=== PATIENT | female | born 1930 | race Two or more races ===

== ENCOUNTER 2018-07-18 16:03 | Emergency (ER) | payer OTHER ==
--- NOTE | 2018-07-18 16:22 | PDOC ---
History of Present Illness - General Chief Complaint: Urinary Catheter Problem Stated Complaint: URINARY SYMPTOMS - History of Present Illness Initial Comments: 07/18/18 17:11 88 yo F with h/o frequent uti, here from assisted living with concerns by staff for behavoiral changes. increased agression and feistiness in evening. pt had complained of dysuria few day ago. has had loose cough last few days states everyone at the nursing facility had bronchitis. denies f/c no nv/ pt currently denying she had any dysuria states she feels fine. no abd pain no cp no sob. does have chronic leg swelling. less ambulatory recently but still walks with assistance. Past History - Past Medical History Allergies/Adverse Reactions: Allergies Allergy/AdvReac Type Severity Reaction Status Date / Time tomato Allergy Verified 07/18/18 16:37 Home Medications: Ambulatory Orders Acetaminophen [Tylenol -] 500 mg PO TID PRN 07/18/18 Albuterol Sulfate Inhaler - [Ventolin HFA Inhaler -] 1 puff IH Q4H PRN #1 inhaler MDD 6 07/18/18 Ammonium Lactate Cream [Lac-Hydrin] 1 applic TP BID 07/18/18 Azithromycin 250 mg PO DAILY #5 tablet 07/18/18 Cholecalciferol (Vitamin D3) [Vitamin D3] 1,000 unit PO DAILY 07/18/18 Clotrimazole [Lotrimin 1% Solution -] 1 applic TP BID 07/18/18 Docusate Sodium [Colace] 200 mg PO DAILY 07/18/18 Duloxetine HCl [Cymbalta] 20 mg PO DAILY 07/18/18 Fluticasone Prop 0.05% Nasal [Flonase -] 1 - 2 spray NS DAILY 07/18/18 Gabapentin 200 mg PO TID 07/18/18 Guaifenesin [Siltussin SA] 200 mg PO QSHIFT 07/18/18 Nitroglycerin [Nitrostat] 0.4 mg SL ASDIR 07/18/18 Review of Systems - Review of Systems Constitutional: No: Chills, Diaphoresis HEENTM: No: Blurred Vision Respiratory: Yes: Cough. No: Orthopnea, Shortness of Breath Cardiac (ROS): Yes: Edema. No: Chest Pain : Yes: Burning, Dysuria All Other Systems: Reviewed and Negative *Physical Exam - Physical Exam Comments: 07/18/18 17:13 awake alert lungs with wheezing bilateral bases ,faint crackles. normal effor. heart rrr no mrg abd soft nt nd. ext wwp mild nonpitting edema bilaterally. alert oriented. moves all ext. well appearing. ED Treatment Course - LABORATORY CBC & Chemistry Diagram: 07/18/18 17:19 07/18/18 17:19 Medical Decision Making - Medical Decision Making 07/18/18 16:21 88 yo F from nursing facility here for concerns for cough and uti. pt had reported dysuria a few days priornoted to have a wet sounding cough. denies any pain or sxs currently. differential viral bronchitis, uti, electrlyte abnormality. renal failure. plan labs cxr ua urine cultures. duoneb for wheezing. depenind studies pt overall well appearing possibly dc with treatment for uti. 07/18/18 17:14 07/18/18 18:53 pt feels improved with negs. saturation 98 %. xray with haziness at right heart border. will treat for bronchitis with azithromycin. ua negative for infection. inhaler 2 puffs every 4 hrs as needed. *DC/Admit/Observation/Transfer Diagnosis at time of Disposition: Bronchitis - Discharge Dispostion Disposition: HOME Condition at time of disposition: Improved - Prescriptions Prescriptions: Albuterol Sulfate Inhaler - [Ventolin HFA Inhaler -] 1 puff IH Q4H PRN #1 inhaler MDD 6 PRN Reason: Cough Azithromycin 250 mg PO DAILY #5 tablet - Referrals - Patient Instructions Printed Discharge Instructions: Acute Bronchitis, Pneumonia-Adult Additional Instructions: use albuterol inhaled 2 puffs every 4 hours as needed for wheezing or cough. take azithromycin 250 mg daily starting tomorrow. your urine is negative for infection. you have bronchitis/ pneumonia. take antiobiotics daily, for any shortness of breath fever or vomiting return to ed for repeat evaluation. - Post Discharge Activity
[2018-07-18 16:41] VITALS: BP 130/59; PULSE 62; TEMP 97.6; BMI 32.5
[2018-07-18 17:07] LABS: PH,URINE 5.5 (4.5-8); URINE APPEARANCE Slightly; URINE BILIRUBIN Negative (NEGATIVE); URINE COLOR Yellow; URINE GLUCOSE (UA) Negative (NEGATIVE); URINE KETONE Trace (NEGATIVE); URINE LEUK ESTERASE Negative (NEGATIVE); URINE NITRITE Negative (NEGATIVE); URINE PROTEIN Trace (NEGATIVE)
[2018-07-18] MEDS ORDERED: ALBUTEROL SO4 2.5/IPRATROPIUM 0.5 INH SOL 3 ML VIAL.NEB. NEB ONE ×2 (17:10→17:15)
[2018-07-18 17:27] LABS: BASO % 0.8 % (0-2.0); EOS % 2.1 % (0-4.5); HEMATOCRIT 40.3 % (32.4-45.2); HEMOGLOBIN 13.3 GM/dl (10.7-15.3); LYMPH % 25.2 % (8-40); MCH 30.9 pg (25.7-33.7); MEAN CELL VOLUME 93.6 fl (80-96); MEAN PLT VOLUME 7.9 fl (7.5-11.1); MONO % 7.9 % (3.8-10.2); PLATELET COUNT 259 K/MM3 (134-434); RBC 4.31 M/mm3 (3.60-5.2); RDW 13.1 % (11.6-15.6); WHITE BLOOD COUNT 4.6 K/mm3 (4.0-10.8)
[2018-07-18 17:45] LABS: ALBUMIN 3.7 g/dl (3.5-5.0); ALK PHOS 90 U/L (32-92); ANION GAP 6 MMOL/L (8-16); BILIRUBIN,TOTAL 0.5 mg/dl (0.2-1.0); BLOOD UREA NITROGEN 24 mg/dl (7-18); CALCIUM 9.3 mg/dl (8.4-10.2); CHLORIDE 102 mmol/L (98-107); CO2 31 mmol/L (22-28); CREATININE 1.1 mg/dl (0.6-1.3); GLUCOSE,RANDOM 107 mg/dl (74-106); POTASSIUM 4.3 mmol/L (3.5-5.1); SGOT/AST 31 U/L (10-42); SGPT/ALT 19 U/L (10-40); SODIUM 139 mmol/L (136-145); TOT PROT 6.6 g/dl (6.4-8.3)
[2018-07-18 17:53] LABS: EPI CELLS 1+ /HPF
[2018-07-18 17:54] LABS: AMORP URATES 2+ /hpf (NONE SEEN)
[2018-07-18] MEDS ORDERED: AZITHROMYCIN 500 MG TABLET PO ONE (18:58)
[2018-07-18] MEDS ORDERED: AZITHROMYCIN 500 MG TABLET ONE (19:05)
== END 2018-07-18 19:25 | disposition home or self-care (01) ==
LOC: FER 16:03
PROC: 3E0F7GC Introduction of Other Therapeutic Substance into Respiratory Tract, Via Natural or Artificial Opening (ICD-10-PCS; principal; 2018-07-18)
DX: J40 Bronchitis, not specified as acute or chronic (principal)
CPT/HCPCS: 36415; 71045-TC-FY; 80053; 81003; 81015; 85025; 87086; 99283-25

== ENCOUNTER 2018-08-13 06:46 | Inpatient (IN) | payer OTHER ==
--- NOTE | 2018-08-13 07:02 | PDOC ---
History of Present Illness - General Chief Complaint: Injury Stated Complaint: RULE OUT HEAD FRACTURE - History of Present Illness Initial Comments: Julieta Blevins is an 88yo woman with a PMH of HTN, CAD s/p DE, RA, osteoporosis, hypothyroidism, HLD, depression/anxiety, PVD, IBS, and mild cognitive impariment who presents from [facility] following a fall this morning. She reports that she was in the shower with an aide, who left momentarily, and she fell from her wheelchair. She denies any LOC prior to the fall, and it appears to have been a mechanical fall. She states that she did hit her head, but she denies any significant injury, LOC, continued headache, dizziness, or focal neurological symptoms. Her main complaint currently is significant right hip pain. She states that when she fell she had a tearing sensation in her right hip, and she has had significant continued pain since that time. She is unable to move her right leg secondary to pain. Prior to the fall, she was minimally ambulatory and had no difficulty with movement or hip pain. She denies any previous fracture or fall. Past History - Past Medical History Allergies/Adverse Reactions: Allergies Allergy/AdvReac Type Severity Reaction Status Date / Time tomato Allergy Verified 08/13/18 06:58 Home Medications: Ambulatory Orders Acetaminophen 500 mg PO QID 08/13/18 Ammonium Lactate [Christa-Hydrolac] 240 gm TP ASDIR 08/13/18 Chlorhexidine Gluconate [Peridex -] 15 ml MM BID 08/13/18 Cholecalciferol (Vitamin D3) [Vitamin D3] 1,000 unit PO DAILY 08/13/18 Docusate Sodium [Colace] 200 mg PO DAILY 08/13/18 Duloxetine HCl [Cymbalta] 20 mg PO DAILY 08/13/18 Gabapentin 100 mg PO BID 08/13/18 Nitroglycerin 0.4 mg SL ASDIR 08/13/18 Simvastatin 20 mg PO DAILY 08/13/18 COPD: No - Suicide/Smoking/Psychosocial Hx Smoking History: Never smoked Have you smoked in the past 12 months: No Information on smoking cessation initiated: No Hx Alcohol Use: No Drug/Substance Use Hx: No Substance Use Type: None Review of Systems - Review of Systems Comments:: General: No fevers, no chills, no weight or appetite change, no malaise HEENT: No changes in vision, no changes in hearing, no congestion, no sore throat CV: No chest pain, no palpitations, no LE edema Pulm: No SOB, no cough, no wheezing GI: No nausea or vomiting, no change in bowel habits, no melena : No frequency, no urgency, no dysuria Musc: See HPI Skin: No rash, no lesions, no erythema Endo: No excessive thirst, no heat/cold intolerance Heme: No unusual bruising or bleeding, no swollen glands Neuro: No syncope, no numbness/tingling, no focal weakness Vasc: No claudication Psych: No recent change in mood, no SI or HI *Physical Exam - Vital Signs Last Vital Signs Temp Pulse Resp BP Pulse Ox 97.0 F L 60 18 155/66 95 08/13/18 06:58 08/13/18 06:58 08/13/18 06:58 08/13/18 06:58 08/13/18 06:58 - Physical Exam Comments: General: Uncomfortable, appears to be in pain HEENT: PERRL, EOMI, MMM, voice normal, normal neck ROM, no LAD Cards: RRR Pulm: Comfortable on room air, clear to auscultation bilaterally Abd: Soft, nontender, nondistended. Abdominal palpation causes pain in R hip Ext: R leg shortened and externally rotated. Able to move b/l feet normally, sensation to light touch intact in distal LE. Vasc: Extremities WWP. Skin: Normal color, no rashes or lesions Neuro: A&Ox3, CN grossly intact, normal speech, motor/sensory grossly intact and symmetric Psych: Mood appropriate to situation ED Treatment Course - LABORATORY CBC & Chemistry Diagram: 08/13/18 07:45 08/13/18 07:45 Medical Decision Making - Medical Decision Making 08/13/18 07:43 Julieta Blevins is an 88yo woman with a PMH of HTN, CAD s/p DE, RA, osteoporosis, hypothyroidism who presents following a mechanical fall in the shower with a suspected right hip/pelvis fracture. - Xrays of right hip/pelvis to evaluate for fracture - Reports minor head injury, no LOC. Given age, CT head to r/o bleed - Likely to need to go to the OR. - CBC, CMP, coags, mag, phos - 2mg morphine for pain given. 4mg zofran for nausea following morphine 08/13/18 09:01 - Additional 2mg morphine for pain with transfer at CT - Head CT reviewed, no intracranial bleed - Xrays pending 08/13/18 09:49 - Hip/pelvis xray with acute right intertrochanteric fracture - Will admit - Call placed to orthopedics 08/13/18 10:40 - Discussed with Dr Jerez. Will admit to Dr Francisco. - Waiting for call back from ortho ([place], [place]). 2nd call placed. - Informed Ms Blevins and her daughter, now at bedside, about the fracture. They understand the plan for admission with an ortho consult for possible intervention. Discussed with Dr Siddiqui. Linda Frank PGY1 *DC/Admit/Observation/Transfer Diagnosis at time of Disposition: Fracture, intertrochanteric, right femur - Discharge Dispostion Condition at time of disposition: Stable Decision to Admit order: Yes - Referrals - Patient Instructions - Post Discharge Activity
[2018-08-13 07:05] VITALS: BMI 33.0
[2018-08-13] MEDS ORDERED: morphine CARPU-JECT 2 MG/1 ML DISP.SYRIN IVPUSH ONE ×2 (07:16→08:12)
--- NOTE | 2018-08-13 07:21 | PDOC ---
Attending Attestation - Resident Resident Name: ZacLinda - ED Attending Attestation I have performed the following: I have examined & evaluated the patient, The case was reviewed & discussed with the resident, I agree w/resident's findings & plan, Exceptions are as noted - HPI HPI: 08/13/18 07:22 88y F CAD, HTN, RA, OA, Hypothyroidism, presents s/p fall this morning out of her wheelchair this morning, landing on her right hip. Pt endorses head trauma but denies any LOC. Pt endorses significant R hip pain sp her fall. She denies neck pain, back pain, cp, abd pain, n/v, viison changes, focal weakness, fc, recent dysuria. on exam: HEENT: atraumatic scalp, Cardiac: no mrg Pulm: cta bl abd: soft nontender Ext: shortened externally rotated R hip Neuro: sensation intact and symmetric suspect hip fx will obtain hip/pelvis ct head to r/o injury morphine for pain if +hip fx, will admit for further mangaement and dw ortho - Physicial Exam PE: 08/13/18 10:10 see above - Medical Decision Making 08/13/18 10:10 +intertroch fracture noted in the R hip will admit for further management will ontify ortho Heart Score/ECG Review - ECG Impressions Comment:: 08/13/18 16:54 Twelve-lead EKG was performed and reviewed by me. There is normal sinus rhythm with a normal rate. rate of 62 The axis is normal. The intervals are normal. There is normal R wave progression There are no ST or T wave abnormalities. Impression: Normal twelve-lead EKG
[2018-08-13] MEDS ORDERED: morphine SULFATE 4 MG/ML VIAL ONE ×2 (07:31→08:13)
[2018-08-13] MEDS ORDERED: ONDANSETRON 4 MG/2 ML VIAL IVPUSH ONE (07:37)
[2018-08-13] MEDS ORDERED: ONDANSETRON 4 MG/2 ML VIAL ONE ×3 (07:39→18:11)
[2018-08-13 08:00] LABS: BASO % 0.5 % (0-2.0); EOS % 0.9 % (0-4.5); HEMATOCRIT 42.5 % (32.4-45.2); HEMOGLOBIN 13.6 GM/dL (10.7-15.3); LYMPH % 19.1 % (8-40); MCH 30.1 pg (25.7-33.7); MCHC 32.1 g/dl (32.0-36.0); MEAN CELL VOLUME 93.7 fl (80-96); MEAN PLT VOLUME 7.8 fl (7.5-11.1); MONO % 7.9 % (3.8-10.2); NEUT % 71.6 % (42.8-82.8); PLATELET COUNT 224 K/MM3 (134-434); RBC 4.54 M/mm3 (3.60-5.2); RDW 13.4 % (11.6-15.6); WHITE BLOOD COUNT 6.7 K/mm3 (4.0-10.0)
[2018-08-13 08:54] LABS: INR 0.92 (0.83-1.09); PROTHROMBIN TIME (PATIENT) 10.8 SEC (9.7-13.0)
[2018-08-13 08:57] LABS: ACTIVATED PTT 24.9 SECONDS (25.2-36.5)
[2018-08-13 09:40] LABS: ALBUMIN 3.2 g/dl (3.4-5.0); ALK PHOS 102 U/L (45-117); ANION GAP 4 MMOL/L (8-16); BILIRUBIN,TOTAL 0.3 mg/dL (0.2-1); BLOOD UREA NITROGEN 21 mg/dL (7-18); CALCIUM 9.5 mg/dL (8.5-10.1); CHLORIDE 105 mmol/L (98-107); CO2 31 mmol/L (21-32); CREATININE 1.1 mg/dL (0.55-1.3); GLUCOSE,RANDOM 92 mg/dL (74-106); MAGNESIUM 2.1 mg/dL (1.8-2.4); PHOSPHOROUS 2.7 mg/dL (2.5-4.9); SGOT/AST 14 U/L (15-37); SGPT/ALT 18 U/L (13-61); SODIUM 140 mmol/L (136-145); TOT PROT 6.5 g/dl (6.4-8.2)
--- NOTE | 2018-08-13 10:30 | HP ---
CHIEF COMPLAINT: s/p mechanical fall PCP: Dr. Gallardo HISTORY OF PRESENT ILLNESS: 88yo woman with a PMH of HTN, CAD s/p DE, RA, osteoporosis, hypothyroidism, HLD , depression/anxiety, PVD, IBS, and mild cognitive impairment who presents from [facility] following a fall this morning. This morning after her shower while getting up from wheelchair she slipped and fell. She fell on her right side and hit her head. She is unable to bear weight and very painful with movement. Denies CP, SOB, palpitations, nausea, vomiting fever or chills. ER course was notable for: (1) Xray shows acute right intertrochanteric fracture. (2) CT head was negative for fracture or acute intercranial pathology. (3) Recent Travel: none PAST MEDICAL HISTORY: HTN, CAD s/p DE, RA, osteoporosis, hypothyroidism, HLD, depression/anxiety, PVD, IBS, and mild cognitive impariment, Ovarian Ca. PAST SURGICAL HISTORY: appendectomy, oophorectomy(2012). Social History: Smoking:never Alcohol:denies Drugs: denies Worked as commercial real estate paralegal, lives at assisted living, mostly uses wheelchair to get around but does ambulate with rolling walker at Center. Family History: mother ( in mary 70's from complications of PNA?), Father in 90's (CVD and stroke. ) Allergies tomato Allergy (Verified 08/13/18 06:58) HOME MEDICATIONS: Home Medications Medication Instructions Recorded Acetaminophen 500 mg PO QID 08/13/18 Albuterol Sulfate 0.042% [Ventolin 1 neb PO QID 08/13/18 0.042TRENGTH) -] Ammonium Lactate [Christa-Hydrolac] 240 gm TP ASDIR 08/13/18 Chlorhexidine Gluconate [Peridex -] 15 ml MM BID 08/13/18 Cholecalciferol (Vitamin D3) 1,000 unit PO DAILY 08/13/18 [Vitamin D3] Clotrimazole [Lotrimin 1% Solution 1 applic TP BID 08/13/18 -] Docusate Sodium [Colace] 200 mg PO DAILY 08/13/18 Duloxetine HCl [Cymbalta] 20 mg PO DAILY 08/13/18 Fluticasone Prop 0.05% Nasal 1 - 2 spray NS DAILY 08/13/18 [Flonase -] Gabapentin 100 mg PO BID 08/13/18 Guaifenesin 200 mg PO DAILY 08/13/18 Nitroglycerin 0.4 mg SL ASDIR 08/13/18 Simvastatin 20 mg PO DAILY 08/13/18 REVIEW OF SYSTEMS CONSTITUTIONAL: Absent: fever, chills, diaphoresis, generalized weakness, malaise, loss of appetite, weight change HEENT: Absent: rhinorrhea, nasal congestion, throat pain, throat swelling, difficulty swallowing, mouth swelling, ear pain, eye pain, visual changes CARDIOVASCULAR: Absent: chest pain, syncope, palpitations, irregular heart rate, lightheadedness , peripheral edema RESPIRATORY: Absent: cough, shortness of breath, dyspnea with exertion, orthopnea, wheezing, stridor, hemoptysis GASTROINTESTINAL: Absent: abdominal pain, abdominal distension, nausea, vomiting, diarrhea, constipation, melena, hematochezia GENITOURINARY: Absent: dysuria, frequency, urgency, hesitancy, hematuria, flank pain, genital pain MUSCULOSKELETAL: right hip pain. Absent: myalgia, arthralgia, joint swelling, back pain, neck pain SKIN: Absent: rash, itching, pallor HEMATOLOGIC/IMMUNOLOGIC: Absent: easy bleeding, easy bruising, lymphadenopathy, frequent infections ENDOCRINE: Absent: unexplained weight gain, unexplained weight loss, heat intolerance, cold intolerance NEUROLOGIC: Absent: headache, focal weakness or paresthesias, dizziness, unsteady gait, seizure, mental status changes, bladder or bowel incontinence PSYCHIATRIC: Absent: anxiety, depression, suicidal or homicidal ideation, hallucinations. PHYSICAL EXAMINATION Vital Signs - 24 hr 08/13/18 06:58 Temperature 97.0 F L Pulse Rate 60 Respiratory 18 Rate Blood Pressure 155/66 O2 Sat by Pulse 95 Oximetry (%) GENERAL: AAOx3, mild distress HEAD: NCAT EYES: PERRLA,EOMI, sclera anicteric, conjunctiva clear. No lid lag. EARS, NOSE, THROAT: Moist mucous membranes. NECK: Supple without lymphadenopathy, JVD, or masses. LUNGS: CTAB. No wheezes, and no crackles. No accessory muscle use. HEART: RRR, normal S1 and S2 without murmur, rub or gallop. ABDOMEN: Soft, NTND,NABS, no guarding, no rebound, no masses. No organomegally. MUSCULOSKELETAL: decreases ROM bilateral lower ext. 2/2 pain. R hip tenderness to palpation . Right leg shortened and externally rotated. Neurovascularly intact. No CVA tenderness. UPPER EXTREMITIES: 2+ pulses, warm, well-perfused. No cyanosis. No clubbing. No peripheral edema. LOWER EXTREMITIES: 2+ DP pulses bilat. warm, well-perfused. No calf tenderness. No peripheral edema. NEUROLOGICAL: Cranial nerves II-XII intact. Normal speech. Normal gait. PSYCHIATRIC: Cooperative. Good eye contact. Appropriate mood and affect. SKIN: Warm, dry, normal turgor, no rashes or lesions noted, normal capillary refill. Laboratory Results - last 24 hr 08/13/18 08/13/18 08/13/18 07:45 07:45 07:45 WBC 6.7 RBC 4.54 Hgb 13.6 Hct 42.5 MCV 93.7 MCH 30.1 MCHC 32.1 RDW 13.4 Plt Count 224 MPV 7.8 Absolute Neuts (auto) 4.8 Neutrophils % 71.6 Lymphocytes % 19.1 Monocytes % 7.9 Eosinophils % 0.9 Basophils % 0.5 Nucleated RBC % 0 PT with INR 10.80 INR 0.92 PTT (Actin FS) 24.9 L Sodium 140 Potassium 5.0 Chloride 105 Carbon Dioxide 31 Anion Gap 4 L BUN 21 H Creatinine 1.1 Creat Clearance w eGFR 46.98 Random Glucose 92 Calcium 9.5 Phosphorus 2.7 Magnesium 2.1 Total Bilirubin 0.3 AST 14 L ALT 18 Alkaline Phosphatase 102 Total Protein 6.5 Albumin 3.2 L ASSESSMENT/PLAN: 88yo woman with a PMH of HTN, CAD s/p DE, RA, osteoporosis, hypothyroidism, HLD , depression/anxiety, PVD, IBS, and mild cognitive impairment who presents s/p mechanical fall found to have acute right intertrochanteric fracture on imaging admitted for further management. Problem List - Problem (1) Intertrochanteric fracture Assessment/Plan: Acute Right sided fracture. * Ortho consult * Pain control with Morphine 2mg IV Q4H * NPO for now for possible intervention. * hold all anticoagulation and antiplatlets medication. * coags done. * type and screen done. * Risk stratification- Intermediate risk patient for intermediate risk surgery. (2) HLD (hyperlipidemia) Assessment/Plan: continue statin. (3) Depression Assessment/Plan: Continue Cymbalta. (4) Chronic neuropathic pain Assessment/Plan: continue Gabapenitin. Visit type - Emergency Visit Emergency Visit: Yes ED Registration Date: 08/13/18 Care time: The patient presented to the Emergency Department on the above date and was hospitalized for further evaluation of their emergent condition. - New Patient This patient is new to me today: Yes Date on this admission: 08/13/18 - Critical Care Critical Care patient: No
[2018-08-13] MEDS ORDERED: morphine CARPU-JECT 2 MG/1 ML DISP.SYRIN IVPUSH PRN (10:31)
[2018-08-13] MEDS ORDERED: morphine SULFATE 4 MG/ML VIAL IVPUSH PRN (11:13)
[2018-08-13] MEDS ORDERED: ACETAMINOPHEN 1000 MG/100 ML VIAL (NON FORMULARY) IVPB PRN (11:29)
[2018-08-13] MEDS ORDERED: SODIUM CHLORIDE 1,000 ML IV SCH ×2 (12:45→19:45)
[2018-08-13] MEDS ORDERED: ACETAMINOPHEN 325 MG TABLET (FP) PO PRN (12:53)
[2018-08-13] MEDS ORDERED: oxyCODONE HCL 5 MG TABLET PO PRN (12:53)
[2018-08-13] MEDS ORDERED: ACETAMINOPHEN INJECTION 100 ML IVPB ONE (16:47)
[2018-08-13] MEDS ORDERED: SUCCINYLCHOLINE CHLORIDE 200 MG/10 ML VIAL ONE (16:50)
[2018-08-13] MEDS ORDERED: PROPOFOL 20 ML ONE (16:50)
[2018-08-13] MEDS ORDERED: CLINDAMYCIN PHOSPHATE 600 MG/4 ML VIAL ONE (17:26)
--- NOTE | 2018-08-13 17:28 | PN ---
Teaching Attending Note Name of Resident: Jose Daniel Jerez ATTENDING PHYSICIAN STATEMENT I saw and evaluated the patient. I reviewed the resident's note and discussed the case with the resident. I agree with the resident's findings and plan as documented. HPI is per resident as pt was in the OR and unable to be assessed. SUBJECTIVE:88yo F wtih PMH CAD, OA, hypothyroid, dyslipidemia, ovarian cancer s/ p oophorectomy and Rtx presented to the ER after mechanical fall. Pt just showered and was sititng in her wheelchair getting dressed. when she stood up she slipped as she was still wet. she struck her head on the floor and landed on her R side. c/o pain in her R hip. denies Cp, SOB, fever, chills, N/V/ C/D OBJECTIVE: Last Vital Signs Temp Pulse Resp BP Pulse Ox 98.7 F 69 19 148/68 100 08/13/18 15:00 08/13/18 11:49 08/13/18 15:00 08/13/18 15:00 08/13/18 11:49 ASSESSMENT AND PLAN: 88yo F with PMH CAD, OA, hypothyroid, dyslipidemia, ovarian ca presented to the ER after a mechanical fall and found to have a R hip fracture 1. R intertrochanter fracture- medicine admission. pt is intermediate risk for intermediate risk procedure. in the OR currently. pain control. bartholomew placement. PT eval post-op. will likely require RAFAEL on discharge. head CT with no acute pathology 2. dehydrated- will give 1L NS. monitor. encourage po intakje 3. CAD- no signs of acs. unclear why not on asa 4. hypothyroid- unclear if pt has this as not on medications. check TSH 5. Dyslipidemia- statin 6. ovarian ca s/p oophorectomy and Rtx- outpatient follow up 7. DVT ppx- lovenox
[2018-08-13] MEDS ORDERED: CLINDAMYCIN 900 MG PREMIX BAG IVPB ONE (17:41)
[2018-08-13] MEDS ORDERED: TRANEXAMIC ACID 1000 MG/10 ML VIAL ONE (18:00)
[2018-08-13] MEDS ORDERED: ENOXAPARIN NA (PORCINE) 40 MG/0.4 ML DISP.SYRIN SQ SCH (18:15)
[2018-08-13] MEDS ORDERED: ONDANSETRON 4 MG/2 ML VIAL IVPUSH PRN (18:48)
--- NOTE | 2018-08-13 18:50 | OP ---
Operative Note - Note: Operative Date: 08/13/18 Pre-Operative Diagnosis: right IT fx Operation: R hip IM nail Implants: [employer] gamma 3 125 w 95mm proximal and 37.5mm distal locking screws Surgeon: Tito Egan Anesthesiologist/DIVISION DIRECTOR: Shaw Anglin Anesthesia: Spinal Estimated Blood Loss (mls): 200 Operative Report Dictated: Yes
[2018-08-13] MEDS ORDERED: LACTATED RINGERS SOLUTION 1,000 ML IV SCH (19:00)
--- NOTE | 2018-08-13 21:03 | CONS ---
DATE OF CONSULTATION: 08/13/2018 CHIEF COMPLAINT: Right hip pain. HISTORY OF PRESENT ILLNESS: This is an 88-year-old female who suffered a fall in the morning. She lives in assisted living. She slipped while getting out of her wheelchair after a shower. She did hit her head but was worked up in the emergency room and was found to have no intracranial pathology. She has pain in the hip. She denies pain elsewhere. She does note that while she does not have acute pain elsewhere, she does have chronic lower extremity pain secondary to spinal stenosis. She has previously received MONIKA. PAST MEDICAL HISTORY: Significant for hypertension, CAD, [place], rheumatoid arthritis, osteoporosis, hypothyroid, hyperlipidemia, depression, anxiety, peripheral vascular disease, IBS, mild cognitive impairment. PAST SURGICAL HISTORY: Significant for appendectomy and oophorectomy. SOCIAL HISTORY: Denies alcohol, drugs, or tobacco. FAMILY HISTORY: Noncontributory. ALLERGIES: Include PENICILLIN. REVIEW OF SYMPTOMS: Negative for fever, chills, nausea, vomiting, night sweats, difficulty swallowing, ear pain or eye pain. No shortness of breath or dyspnea on exertion. No abdominal distention or pain. No urinary frequency or dysuria. PHYSICAL EXAMINATION: General: This is an elderly female in no acute distress. She is alert and oriented x3. She is seen lying on the hospital stretcher. Extremities: Examination of the right lower extremity demonstrates shortening and external rotation. She has pain with any range of motion of the hip. Her knee is nontender. Her ankle is nontender. Displaced sensation is grossly intact to light touch. Has 2+ DP pulses. Intact EHL, FHL, tibialis anterior, gastric ,and soleus. Radiographs were reviewed demonstrating a displaced intertrochanteric hip fracture. PLAN: I reviewed today's findings with the patient as well as her daughter. I addressed that she has a displaced intertrochanteric hip fracture. In order to best treat her, I believe operative care is best. This would involve intramedullary nail fixation. Discussed the option of nonoperative care, prolonged bedrest, loss of ambulatory function, and significant risks and medical complications. We reviewed surgical risks in detail including bleeding, infection, neurovascular injury, need for further surgery, postoperative pain and stiffness, nonunion, malunion, hardware failure or cutout. We discussed medical risks such as heart attack, stroke, DVT, PE, and . I addressed the use of perioperative antibiotic and DVT prophylaxis. I reviewed the postoperative rehabilitation protocol including the use of walker and need for extensive physical therapy. I addressed all of the patient's and her family's questions and concerns. They voiced understanding and elected to proceed. She will be brought to the OR later today. ANTHONY GARCIA M.D. [id number]
[2018-08-13] MEDS ORDERED: GABAPENTIN 100 MG CAPSULE (FP) PO SCH (22:00)
[2018-08-13] MEDS: oxyCODONE HCL 5 MG TABLET PO PRN (22:46)
[2018-08-13] MEDS: GABAPENTIN 100 MG CAPSULE (FP) PO SCH (22:47)
[2018-08-13] MEDS: CALCIUM 500MG/VIT-D 200 UNITS COMBO TABLET (FP) PO SCH (22:47)
[2018-08-14] MEDS: CLINDAMYCIN 600MG PREMIX IVPB 600 MG/50 ML BAG IVPB SCH ×3 (02:33→17:34)
[2018-08-14] MEDS: oxyCODONE HCL 5 MG TABLET PO PRN ×2 (06:19→20:04)
[2018-08-14 07:42] LABS: BASO % 0.3 % (0-2.0); EOS % 0.1 % (0-4.5); HEMATOCRIT 38.7 % (32.4-45.2); HEMOGLOBIN 12.3 GM/dL (10.7-15.3); LYMPH % 13.8 % (8-40); MCH 29.9 pg (25.7-33.7); MCHC 31.8 g/dl (32.0-36.0); MEAN CELL VOLUME 93.9 fl (80-96); MEAN PLT VOLUME 7.8 fl (7.5-11.1); MONO % 10.8 % (3.8-10.2); PLATELET COUNT 190 K/MM3 (134-434); RBC 4.12 M/mm3 (3.60-5.2); RDW 13.9 % (11.6-15.6); WHITE BLOOD COUNT 7.8 K/mm3 (4.0-10.0)
[2018-08-14 07:56] LABS: ALBUMIN 2.8 g/dl (3.4-5.0); ALK PHOS 91 U/L (45-117); ANION GAP 8 MMOL/L (8-16); BILIRUBIN,TOTAL 0.5 mg/dL (0.2-1); BLOOD UREA NITROGEN 18 mg/dL (7-18); CALCIUM 8.4 mg/dL (8.5-10.1); CHLORIDE 104 mmol/L (98-107); CO2 29 mmol/L (21-32); CREATININE 0.8 mg/dL (0.55-1.3); GLUCOSE,RANDOM 114 mg/dL (74-106); MAGNESIUM 1.9 mg/dL (1.8-2.4); PHOSPHOROUS 3.2 mg/dL (2.5-4.9); POTASSIUM 4.7 mmol/L (3.5-5.1); SGOT/AST 13 U/L (15-37); SGPT/ALT 17 U/L (13-61); SODIUM 140 mmol/L (136-145); TOT PROT 5.9 g/dl (6.4-8.2)
[2018-08-14 08:15] LABS: PROTHROMBIN TIME (PATIENT) 11.8 SEC (9.7-13.0)
[2018-08-14 08:18] LABS: ACTIVATED PTT 27.5 SECONDS (25.2-36.5)
--- NOTE | 2018-08-14 09:39 | PN ---
Progress Note, Physician Chief Complaint: Day 1 s/p R hip gamma nail under GA - Current Medication List Current Medications: Active Medications Acetaminophen (Tylenol -) 325 mg PO Q4H PRN PRN Reason: PAIN 6-10 Stop: 08/16/18 12:52 Atorvastatin Calcium (Lipitor -) 10 mg PO HS [facility] Calcium Carbonate/Cholecalciferol (Os-Denny 500+D -) 1 tab PO BID [facility] Last Admin: 08/13/18 22:47 Dose: 1 tab Cholecalciferol (Vitamin D3 -) 1,000 unit PO DAILY [facility] Docusate Sodium (Colace -) 200 mg PO DAILY [facility] Duloxetine HCl (Cymbalta -) 20 mg PO DAILY [facility] Enoxaparin Sodium (Lovenox -) 40 mg SQ DAILY [facility] Fentanyl (Sublimaze Injection -) 50 mcg IVPUSH [id number] PRN PRN Reason: PAIN-PACU ORDER X 4 DOSES ONLY Last Admin: 08/13/18 19:20 Dose: 50 mcg Gabapentin (Neurontin -) 100 mg PO BID [facility] Last Admin: 08/13/18 22:47 Dose: 100 mg Lactated Ringer's (Lactated Ringers Solution) 1,000 mls @ 125 mls/hr IV ASDIR KAMILA Sodium Chloride (Normal Saline -) 1,000 mls @ 83 mls/hr IV ASDIR KAMILA Last Admin: 08/13/18 20:41 Dose: 0 mls Clindamycin Phosphate (Cleocin 600 Mg Premix Ivpb -) 600 mg in 50 mls @ 100 mls /hr IVPB Q8H-IV KAMILA; Protocol Stop: 08/15/18 01:59 Last Admin: 08/14/18 02:33 Dose: 100 mls/hr Ondansetron HCl (Zofran Injection) 4 mg IVPUSH Q6H PRN PRN Reason: NAUSEA AND/OR VOMITING Oxycodone HCl (Roxicodone -) 5 mg PO Q4H PRN PRN Reason: PAIN 6-10 Last Admin: 08/14/18 06:19 Dose: 5 mg - Objective Vital Signs: Vital Signs Temperature 98.9 F 08/14/18 09:19 Pulse Rate 70 08/14/18 09:19 Respiratory Rate 16 08/14/18 09:19 Blood Pressure 132/55 L 08/14/18 09:19 O2 Sat by Pulse Oximetry (%) 100 08/13/18 20:25 Labs: CBC, BMP 08/14/18 06:10 08/14/18 06:10 INR, PTT INR 1.00 (0.83-1.09) 08/14/18 06:10 Assessment/Plan Pt was reportedly somewhat groggy/sleepy after GA, but is now more awake and able to eat. No anesthetic issues/complications
--- NOTE | 2018-08-14 09:47 | PN ---
Progress Note, Physician History of Present Illness: She feels well. resting in bed. - Current Medication List Current Medications: Active Medications Acetaminophen (Tylenol -) 325 mg PO Q4H PRN PRN Reason: PAIN 6-10 Stop: 08/16/18 12:52 Atorvastatin Calcium (Lipitor -) 10 mg PO HS [facility] Calcium Carbonate/Cholecalciferol (Os-Denny 500+D -) 1 tab PO BID [facility] Last Admin: 08/13/18 22:47 Dose: 1 tab Cholecalciferol (Vitamin D3 -) 1,000 unit PO DAILY [facility] Docusate Sodium (Colace -) 200 mg PO DAILY [facility] Duloxetine HCl (Cymbalta -) 20 mg PO DAILY [facility] Enoxaparin Sodium (Lovenox -) 40 mg SQ DAILY [facility] Fentanyl (Sublimaze Injection -) 50 mcg IVPUSH [id number] PRN PRN Reason: PAIN-PACU ORDER X 4 DOSES ONLY Last Admin: 08/13/18 19:20 Dose: 50 mcg Gabapentin (Neurontin -) 100 mg PO BID [facility] Last Admin: 08/13/18 22:47 Dose: 100 mg Lactated Ringer's (Lactated Ringers Solution) 1,000 mls @ 125 mls/hr IV ASDIR [facility] Sodium Chloride (Normal Saline -) 1,000 mls @ 83 mls/hr IV ASDIR K[facility] Last Admin: 08/13/18 20:41 Dose: 0 mls Clindamycin Phosphate (Cleocin 600 Mg Premix Ivpb -) 600 mg in 50 mls @ 100 mls /hr IVPB Q8H-IV [facility]; Protocol Stop: 08/15/18 01:59 Last Admin: 08/14/18 02:33 Dose: 100 mls/hr Ondansetron HCl (Zofran Injection) 4 mg IVPUSH Q6H PRN PRN Reason: NAUSEA AND/OR VOMITING Oxycodone HCl (Roxicodone -) 5 mg PO Q4H PRN PRN Reason: PAIN 6-10 Last Admin: 08/14/18 06:19 Dose: 5 mg - Objective Vital Signs: Vital Signs Temperature 98.9 F 08/14/18 09:19 Pulse Rate 70 08/14/18 09:19 Respiratory Rate 16 08/14/18 09:19 Blood Pressure 132/55 L 08/14/18 09:19 O2 Sat by Pulse Oximetry (%) 100 08/13/18 20:25 Constitutional: Yes: Well Nourished, No Distress, Calm Musculoskeletal: Yes: Other (Dressing CDI, Mild edema of the hip. Mild pain with ROM. Compartments soft. Calf nontender. NVID.) Labs: CBC, BMP 08/14/18 06:10 08/14/18 06:10 INR, PTT INR 1.00 (0.83-1.09) 08/14/18 06:10 Assessment/Plan POD #1 s/p right hip ORIF -PT WBAT -Pain control -DVT prophylaxis -Dispo planning
[2018-08-14] MEDS ORDERED: CHOLECALCIFEROL (VITAMIN D3) 1,000 UNIT TABLET (FP) PO SCH (10:00)
[2018-08-14] MEDS ORDERED: DULoxetine HCL 20 MG CAPSULE.DR (FP) PO SCH (10:00)
[2018-08-14] MEDS ORDERED: DOCUSATE SODIUM 100 MG CAPSULE (FP) PO SCH (10:00)
--- NOTE | 2018-08-14 10:31 | PN ---
Progress Note (short form) - Note Progress Note: c/o pain at surgical site which is controlled with pain medications. denies CP, SOB, fever, chills, N/V/C/D Current Medications Generic Name Dose Route Start Last Admin Trade Name Freq PRN Reason Stop Dose Admin Acetaminophen 325 mg 08/13/18 19:07 Tylenol - PO 08/16/18 12:52 Q4H PRN PAIN 6-10 Atorvastatin Calcium 10 mg 08/14/18 22:00 Lipitor - PO HS [facility] Calcium Carbonate/Cholecalciferol 1 tab 08/13/18 22:00 08/13/18 22:47 Os-Denny 500+D - PO 1 tab BID [facility] Administration Cholecalciferol 1,000 unit 08/14/18 10:00 Vitamin D3 - PO DAILY [facility] Docusate Sodium 200 mg 08/14/18 10:00 Colace - PO DAILY [facility] Duloxetine HCl 20 mg 08/14/18 10:00 Cymbalta - PO DAILY [facility] Enoxaparin Sodium 40 mg 08/14/18 10:00 Lovenox - SQ DAILY [facility] Fentanyl 50 mcg 08/13/18 18:48 08/13/18 19:20 Sublimaze Injection - IVPUSH 50 mcg [id number] PRN Administration PAIN-PACU ORDER X 4 DOSES ONLY Gabapentin 100 mg 08/13/18 22:00 08/13/18 22:47 Neurontin - PO 100 mg BID [facility] Administration Lactated Ringer's 1,000 mls @ 125 mls/hr 08/13/18 19:00 Lactated Ringers Solution IV ASDIR KAM[facility]A Sodium Chloride 1,000 mls @ 83 mls/hr 08/13/18 19:45 08/13/18 20:41 Normal Saline - IV 0 mls [facility] K[facility]A Administration Clindamycin Phosphate 600 mg in 50 mls @ 100 mls/hr 08/14/18 02:00 08/14/18 02:33 Cleocin 600 Mg Premix Ivpb - IVPB 08/15/18 01:59 100 mls/hr Q8H-IV [facility] Administration Protocol Ondansetron HCl 4 mg 08/13/18 18:48 Zofran Injection IVPUSH Q6H PRN NAUSEA AND/OR VOMITING Oxycodone HCl 5 mg 08/13/18 19:07 08/14/18 06:19 Roxicodone - PO 5 mg Q4H PRN Administration PAIN 6-10 Last Vital Signs Temp Pulse Resp BP Pulse Ox 98.9 F 70 16 132/55 L 100 08/14/18 09:19 08/14/18 09:19 08/14/18 09:19 08/14/18 09:19 08/13/18 20:25 General lethargic. easily aroused to verbal stiumi CV S1 S2 RRR no murmur/rub/gallop Lungs CTA B/L no wheezing/rales/rhonchi Abdomen soft NT/ND Extremities R hip aquacel dressing. non tender CBCD WBC 7.8 K/mm3 (4.0-10.0) 08/14/18 06:10 RBC 4.12 M/mm3 (3.60-5.2) 08/14/18 06:10 Hgb 12.3 GM/dL (10.7-15.3) 08/14/18 06:10 Hct 38.7 % (32.4-45.2) 08/14/18 06:10 MCV 93.9 fl (80-96) 08/14/18 06:10 MCHC 31.8 g/dl (32.0-36.0) L 08/14/18 06:10 RDW 13.9 % (11.6-15.6) 08/14/18 06:10 Plt Count 190 K/MM3 (134-434) 08/14/18 06:10 MPV 7.8 fl (7.5-11.1) 08/14/18 06:10 CMP Sodium 140 mmol/L (136-145) 08/14/18 06:10 Potassium 4.7 mmol/L (3.5-5.1) 08/14/18 06:10 Chloride 104 mmol/L (98-107) 08/14/18 06:10 Carbon Dioxide 29 mmol/L (21-32) 08/14/18 06:10 Anion Gap 8 MMOL/L (8-16) 08/14/18 06:10 BUN 18 mg/dL (7-18) 08/14/18 06:10 Creatinine 0.8 mg/dL (0.55-1.3) 08/14/18 06:10 Creat Clearance w eGFR > 60 (>60) 08/14/18 06:10 Calcium 8.4 mg/dL (8.5-10.1) L 08/14/18 06:10 Total Bilirubin 0.5 mg/dL (0.2-1) 08/14/18 06:10 AST 13 U/L (15-37) L 08/14/18 06:10 ALT 17 U/L (13-61) 08/14/18 06:10 Alkaline Phosphatase 91 U/L (45-117) 08/14/18 06:10 Total Protein 5.9 g/dl (6.4-8.2) L 08/14/18 06:10 Albumin 2.8 g/dl (3.4-5.0) L 08/14/18 06:10 Assessment and plan 88yo F with PMH CAD, OA, hypothyroid, dyslipidemia, ovarian ca presented to the ER after a mechanical fall and found to have a R hip fracture 1. R intertrochanter fracture-s/p R IM gamma nail 08/13. pain controlled. flako- operativbely abx. further recommendations per surgery. PT eval. will need RAFAEL on discharge 2. dehydrated- eating well. will d/c IVF. 3. CAD- no signs of acs. unclear why not on asa. will need to discuss as family as pt is unaware 4. hypothyroid-staets she is on synthroid. "takes a little". does not know pharmacy. will need to verify with family. TSH at lower limits of normal. check T3/T4. 5. Dyslipidemia- statin 6. ovarian ca s/p oophorectomy and Rtx- outpatient follow up 7. DVT ppx- lovenox Visit type - Emergency Visit Emergency Visit: Yes ED Registration Date: 08/13/18 Care time: The patient presented to the Emergency Department on the above date and was hospitalized for further evaluation of their emergent condition. - New Patient This patient is new to me today: No - Critical Care Critical Care patient: No - Discharge Referral Referred to [facility] No
[2018-08-14] MEDS: CHOLECALCIFEROL (VITAMIN D3) 1,000 UNIT TABLET (FP) PO SCH (10:39)
[2018-08-14] MEDS: CALCIUM 500MG/VIT-D 200 UNITS COMBO TABLET (FP) PO SCH ×2 (10:40→21:43)
[2018-08-14] MEDS: GABAPENTIN 100 MG CAPSULE (FP) PO SCH ×2 (10:40→21:43)
[2018-08-14] MEDS: DOCUSATE SODIUM 100 MG CAPSULE (FP) PO SCH ×2 (10:40→10:42)
[2018-08-14] MEDS: DULoxetine HCL 20 MG CAPSULE.DR (FP) PO SCH (10:40)
[2018-08-14] MEDS: ENOXAPARIN NA (PORCINE) 40 MG/0.4 ML DISP.SYRIN SQ SCH (10:43)
--- NOTE | 2018-08-14 12:42 | OP ---
DATE OF OPERATION: 08/13/2018 PREOPERATIVE DIAGNOSIS: Right hip intertrochanteric hip fracture. POSTOPERATIVE DIAGNOSIS: Right hip intertrochanteric hip fracture. PROCEDURE: Right hip intramedullary nail. SURGEON: Tito Egan MD ANESTHESIA: General. POSTOPERATIVE CONDITION: Stable. COMPLICATIONS: None. IMPLANTS: [place] Gamma nail, 125 x 130 mm nail with 95-mm proximal lag screw and 37.5 x 5 distal lag screw. INDICATIONS: This is a pleasant, 88-year-old female who suffered a fall. She was found to have an intertrochanteric hip fracture. Treatment options including nonoperative versus operative management were reviewed. Operative risks were reviewed in detail including bleeding, infection, neurovascular injury, need for further surgery, postoperative pain and stiffness, nonunion, malunion, hardware failure, or cutout. We discussed medical risks such as heart attack, stroke, DVT, PE, and . I addressed all the patient's questions and concerns. She voiced understanding and elected to proceed. DESCRIPTION OF PROCEDURE: The patient was brought to the operating room where general anesthesia was administered. She was then placed on the fracture table. Care was taken to pad the bony prominences. The right lower extremity was then prepped and draped in the usual sterile fashion. A preoperative dose of antibiotics given and the usual timeout procedure was performed. The patient had been positioned in a position of adduction, traction, and internal rotation preoperatively to assist in reduction of the fracture. The right limb was now marked out. Incision was made through skin and subcutaneous tissue. A K-wire was now inserted onto the tip of the greater trochanter. Given the patient's body habitus, this could not be well accomplished. Therefore, the awl was used to have a slight curve in order to better able passage correctly. The awl was now passed to assist the greater trochanter. It was then advanced into the femoral canal. A guidewire was then through the awl. Guidewire placement was confirmed fluoroscopically in 2 planes. The guidewire was then overreamed, entering into the femoral canal. The reaming was performed down to the level of the lesser trochanter. The reamer was then removed along with the guidewire. A short nail was then inserted in the femoral canal. Nail placement was confirmed fluoroscopically. A small incision was now made, and a trocar was inserted through the nail jig down to the level of the lateral femoral cortex. A guide pin was now drilled through the center or just inferior to the center of the femoral neck into the center of the femoral head. Guide pin placement was confirmed fluoroscopically in 2 planes. The guide pin was measured, and a 95-mm screw was chosen. The guide pin was then overreamed. The screw was then inserted. Screw placement was confirmed fluoroscopically in 2 planes. The set screw was now inserted and backed off 1/4 turn to allow for compression. The proximal trocar and the guidewire were removed. The distal trocar was inserted utilizing the same distal incision. This was then drilled, measured, and a screw of 37.5 mm was inserted. The entire construct was examined fluoroscopically. Both fracture reduction and hardware placement were satisfactory. The wounds were copiously irrigated. The deep tissue was approximated using number 1 Vicryl. The skin was closed using subcutaneously 2-0 Vicryl and then 3-0 nylon. Sterile dressings were placed. Patient was extubated, transferred to recovery room in stable condition. Priscilla [id number]
[2018-08-14] MEDS: ACETAMINOPHEN 325 MG TABLET (FP) PO PRN (20:05)
[2018-08-14] MEDS: ATORVASTATIN CA 10 MG TABLET (FP) PO SCH (21:43)
[2018-08-14] MEDS ORDERED: ATORVASTATIN CA 10 MG TABLET (FP) PO SCH (22:00)
--- NOTE | 2018-08-15 07:59 | PN ---
Physical Exam: SUBJECTIVE: Patient seen and examined at bedside. No overnight events. No new complaints. POD #3 s/p gamma nail. Pain well controlled. Denies CP,SOTO, SOB, abdominal pain, nausea or vomiting. OBJECTIVE: Vital Signs Period Temp Pulse Resp BP Sys/Caldwell Pulse Ox Last 24 Hr 98.3 F-98.9 F 68-76 16-18 112-140/54-80 97 GENERAL: AAOx3, NAD ENT: moist mucous membranes. NECK:supple. LUNGS: CTAB, no wheezes, no crackles, no accessory muscle use. HEART: RRR, S1, S2 without murmur, rub or gallop. ABDOMEN: Soft, NTND, NABS, no guarding, no rebound, no hepatosplenomegaly, no masses. EXTREMITIES: 2+ pulses, warm, well-perfused, no edema. NEUROLOGICAL: Cranial nerves II through XII grossly intact. Normal speech, gait not observed. PSYCH: Normal mood, normal affect. SKIN: Right leg wound dressing appears clean, dry , and intact. Laboratory Results - last 24 hr 08/14/18 06:10 PT with INR 11.80 INR 1.00 PTT (Actin FS) 27.5 Active Medications Generic Name Dose Route Start Last Admin Trade Name Freq PRN Reason Stop Dose Admin Acetaminophen 325 mg 08/13/18 19:07 08/14/18 20:05 Tylenol - PO 08/16/18 12:52 325 mg Q4H PRN Administration PAIN 6-10 Atorvastatin Calcium 10 mg 08/14/18 22:00 08/14/18 21:43 Lipitor - PO 10 mg HS [facility] Administration Calcium Carbonate/Cholecalciferol 1 tab 08/13/18 22:00 08/14/18 21:43 Os-Denny 500+D - PO 1 tab BID [facility] Administration Cholecalciferol 1,000 unit 08/14/18 10:00 08/14/18 10:39 Vitamin D3 - PO 1,000 unit DAILY [facility] Administration Docusate Sodium 200 mg 08/14/18 10:00 08/14/18 10:42 Colace - PO 200 mg DAILY [facility] Administration Duloxetine HCl 20 mg 08/14/18 10:00 08/14/18 10:40 Cymbalta - PO 20 mg DAILY [facility] Administration Enoxaparin Sodium 40 mg 08/14/18 10:00 08/14/18 10:43 Lovenox - SQ 40 mg DAILY [facility] Administration Fentanyl 50 mcg 08/13/18 18:48 08/13/18 19:20 Sublimaze Injection - IVPUSH 50 mcg [id number] PRN Administration PAIN-PACU ORDER X 4 DOSES ONLY Gabapentin 100 mg 08/13/18 22:00 08/14/18 21:43 Neurontin - PO 100 mg BID [facility] Administration Ondansetron HCl 4 mg 08/13/18 18:48 Zofran Injection IVPUSH Q6H PRN NAUSEA AND/OR VOMITING Oxycodone HCl 5 mg 08/13/18 19:07 08/14/18 20:04 Roxicodone - PO 5 mg Q4H PRN Administration PAIN 6-10 ASSESSMENT/PLAN: 88yo F with PMH CAD, OA, hypothyroid, dyslipidemia, ovarian ca presented to the ER after a mechanical fall and found to have a R hip fracture Problem List - Problems (1) Intertrochanteric fracture Assessment/Plan: Acute Right sided fracture. * s/p R IM gamma nail 08/13 * pain well controlled. * further recommendations per surgery. * PT eval. * will likely need RAFAEL on discharge (2) HLD (hyperlipidemia) Assessment/Plan: continue statin. (3) Depression Assessment/Plan: Continue Cymbalta. (4) Chronic neuropathic pain Assessment/Plan: continue Gabapenitin. Visit type - Emergency Visit Emergency Visit: Yes ED Registration Date: 08/13/18 Care time: The patient presented to the Emergency Department on the above date and was hospitalized for further evaluation of their emergent condition. - New Patient This patient is new to me today: No - Critical Care Critical Care patient: No
--- NOTE | 2018-08-15 09:23 | PN ---
Teaching Attending Note Name of Resident: Jose Daniel Jerez ATTENDING PHYSICIAN STATEMENT I saw and evaluated the patient. I reviewed the resident's note and discussed the case with the resident. I agree with the resident's findings and plan as documented. SUBJECTIVE:asymptomatic. dneies CP, SOB, fever, chills, N/V/C/D OBJECTIVE: Last Vital Signs Temp Pulse Resp BP Pulse Ox 98 F 71 18 143/73 97 08/15/18 08:54 08/15/18 08:54 08/15/18 08:54 08/15/18 08:54 08/14/18 21:00 General NAD CV S1 S2 RRR no murmur/rub/gallop Lungs CTA B/L no wheezing/rales/rhonchi Extremities no hip swelling, bandage intact c/d/i ASSESSMENT AND PLAN: 88yo F with PMH CAD, OA, hypothyroid, dyslipidemia, ovarian ca presented to the ER after a mechanical fall and found to have a R hip fracture 1. R intertrochanter fracture-s/p R IM gamma nail 08/13. pain controlled. further recommendations per surgery. PT eval. will likely need RAFAEL on discharge 2. dehydrated- eating well. 3. CAD- no signs of acs. as per med list not on asa. unclear if reason why. daughter is unawaer 4. hypothyroid-TSH low. T4 normal. pt is asymptomatic. as per med list is not on LT4. will call to confirm. if she is no longer taking medications should have TSH repeated in 2 weeks. 5. Dyslipidemia- statin 6. ovarian ca s/p oophorectomy and Rtx- outpatient follow up 7. DVT ppx- lovenox 8. spoke with daughter present at bedside. discussed current plan and likelihood of requiring RAFAEL. is in agreement with plan. will determine with PT eval tomorrow
[2018-08-15] MEDS: ENOXAPARIN NA (PORCINE) 40 MG/0.4 ML DISP.SYRIN SQ SCH (10:02)
[2018-08-15] MEDS: DULoxetine HCL 20 MG CAPSULE.DR (FP) PO SCH (10:02)
[2018-08-15] MEDS: CALCIUM 500MG/VIT-D 200 UNITS COMBO TABLET (FP) PO SCH ×2 (10:04→21:00)
[2018-08-15] MEDS: CHOLECALCIFEROL (VITAMIN D3) 1,000 UNIT TABLET (FP) PO SCH (10:04)
[2018-08-15] MEDS: GABAPENTIN 100 MG CAPSULE (FP) PO SCH ×2 (10:04→20:59)
[2018-08-15] MEDS: DOCUSATE SODIUM 100 MG CAPSULE (FP) PO SCH (10:04)
--- NOTE | 2018-08-15 10:53 | PN ---
Progress Note (short form) - Note Progress Note: orthopedics She feels well. Resting in bed PE: Dressing CDI, Smooth ROM of hip. Compartments soft. Calf non-tender. NVID. Impression s/p right gamma nail Plan pain control PT WBAT DVT prophaxis discharge planning
[2018-08-15] MEDS: oxyCODONE HCL 5 MG TABLET PO PRN ×2 (11:16→21:01)
[2018-08-15] MEDS: ACETAMINOPHEN 325 MG TABLET (FP) PO PRN (21:00)
[2018-08-15] MEDS: ATORVASTATIN CA 10 MG TABLET (FP) PO SCH (21:00)
[2018-08-16 07:56] LABS: BASO % 0.4 % (0-2.0); EOS % 0.7 % (0-4.5); HEMATOCRIT 34.7 % (32.4-45.2); HEMOGLOBIN 11.1 GM/dL (10.7-15.3); LYMPH % 10.7 % (8-40); MCH 30.2 pg (25.7-33.7); MCHC 32.1 g/dl (32.0-36.0); MEAN PLT VOLUME 8.1 fl (7.5-11.1); MONO % 9.3 % (3.8-10.2); NEUT % 78.9 % (42.8-82.8); PLATELET COUNT 178 K/MM3 (134-434); RBC 3.69 M/mm3 (3.60-5.2); RDW 13.2 % (11.6-15.6); WHITE BLOOD COUNT 8.2 K/mm3 (4.0-10.0)
[2018-08-16 09:05] LABS: ALBUMIN 2.4 g/dl (3.4-5.0); ALK PHOS 73 U/L (45-117); ANION GAP 7 MMOL/L (8-16); BILIRUBIN,TOTAL 0.7 mg/dL (0.2-1); BLOOD UREA NITROGEN 20 mg/dL (7-18); CALCIUM 8.9 mg/dL (8.5-10.1); CHLORIDE 101 mmol/L (98-107); CO2 29 mmol/L (21-32); CREATININE 0.7 mg/dL (0.55-1.3); GLUCOSE,RANDOM 97 mg/dL (74-106); POTASSIUM 4.4 mmol/L (3.5-5.1); SGOT/AST 17 U/L (15-37); SGPT/ALT 14 U/L (13-61); SODIUM 136 mmol/L (136-145); TOT PROT 5.5 g/dl (6.4-8.2)
[2018-08-16] MEDS: ENOXAPARIN NA (PORCINE) 40 MG/0.4 ML DISP.SYRIN SQ SCH (10:04)
[2018-08-16] MEDS: DULoxetine HCL 20 MG CAPSULE.DR (FP) PO SCH (10:04)
[2018-08-16] MEDS: CALCIUM 500MG/VIT-D 200 UNITS COMBO TABLET (FP) PO SCH ×2 (10:04→21:56)
[2018-08-16] MEDS: ACETAMINOPHEN 325 MG TABLET (FP) PO PRN (10:04)
[2018-08-16] MEDS: GABAPENTIN 100 MG CAPSULE (FP) PO SCH ×2 (10:04→21:56)
[2018-08-16] MEDS: DOCUSATE SODIUM 100 MG CAPSULE (FP) PO SCH (10:04)
[2018-08-16] MEDS: CHOLECALCIFEROL (VITAMIN D3) 1,000 UNIT TABLET (FP) PO SCH (10:04)
[2018-08-16] MEDS: oxyCODONE HCL 5 MG TABLET PO PRN ×2 (12:38→17:31)
--- NOTE | 2018-08-16 14:23 | PN ---
Physical Exam: SUBJECTIVE: Patient seen and examined at bedside. no acute events overnight- patient states that she is still having hip pain, however, she is feeling ok. she still has not gone to the bathroom yet- she denies any CP/SOB/N/V fevers or chills OBJECTIVE: Vital Signs Period Temp Pulse Resp BP Sys/[place] Pulse Ox Last 24 Hr 98.2 F-100.3 F 65-80 18-20 103-129/53-69 82-98 GENERAL: The patient is awake, alert, and fully oriented, in no acute distress. EYES: no scleral icterus NECK: no JVD, no lymphadenopathy LUNGS:CTA B/L; no rales, rhonchi or wheezing. HEART: Regular rate and rhythm, S1, S2 without murmur, rub or gallop. ABDOMEN: Soft, nontender, nondistended, normoactive bowel sounds, no guarding, no rebound, no hepatosplenomegaly, no masses. EXTREMITIES: 2+ pulses, warm, well-perfused, no edema. MUSCULOSKELETAL: right hip tenderness upon palpation; dressing clean/dry/intact NEUROLOGICAL: Cranial nerves II through XII grossly intact. Normal speech, gait not observed. PSYCH: Normal mood, normal affect. SKIN: Warm, dry, normal turgor, no rashes or lesions noted Laboratory Results - last 24 hr 08/16/18 08/16/18 06:30 06:30 WBC 8.2 RBC 3.69 Hgb 11.1 Hct 34.7 MCV 94.0 MCH 30.2 MCHC 32.1 RDW 13.2 Plt Count 178 MPV 8.1 Absolute Neuts (auto) 6.5 Neutrophils % 78.9 Lymphocytes % 10.7 D Monocytes % 9.3 Eosinophils % 0.7 D Basophils % 0.4 Nucleated RBC % 0 Sodium 136 Potassium 4.4 Chloride 101 Carbon Dioxide 29 Anion Gap 7 L BUN 20 H Creatinine 0.7 Creat Clearance w eGFR > 60 Random Glucose 97 Calcium 8.9 Total Bilirubin 0.7 AST 17 ALT 14 Alkaline Phosphatase 73 Total Protein 5.5 L Albumin 2.4 L Active Medications Generic Name Dose Route Start Last Admin Trade Name Freq PRN Reason Stop Dose Admin Atorvastatin Calcium 10 mg 08/14/18 22:00 08/15/18 21:00 Lipitor - PO 10 mg HS [facility] Administration Calcium Carbonate/Cholecalciferol 1 tab 08/13/18 22:00 08/16/18 10:04 Os-Denny 500+D - PO 1 tab BID [facility] Administration Cholecalciferol 1,000 unit 08/14/18 10:00 08/16/18 10:04 Vitamin D3 - PO 1,000 unit DAILY [facility] Administration Docusate Sodium 200 mg 08/14/18 10:00 08/16/18 10:04 Colace - PO 200 mg DAILY [facility] Administration Duloxetine HCl 20 mg 08/14/18 10:00 08/16/18 10:04 Cymbalta - PO 20 mg DAILY [facility] Administration Enoxaparin Sodium 40 mg 08/14/18 10:00 08/16/18 10:04 Lovenox - SQ 40 mg DAILY [facility] Administration Fentanyl 50 mcg 08/13/18 18:48 08/13/18 19:20 Sublimaze Injection - IVPUSH 50 mcg [id number] PRN Administration PAIN-PACU ORDER X 4 DOSES ONLY Gabapentin 100 mg 08/13/18 22:00 08/16/18 10:04 Neurontin - PO 100 mg BID [facility] Administration Ondansetron HCl 4 mg 08/13/18 18:48 Zofran Injection IVPUSH Q6H PRN NAUSEA AND/OR VOMITING Oxycodone HCl 5 mg 08/13/18 19:07 08/16/18 12:38 Roxicodone - PO 5 mg Q4H PRN Administration PAIN 6-10 ASSESSMENT/PLAN: 88yo F with PMH CAD, OA, hypothyroid, dyslipidemia, ovarian ca presented to the ER after a mechanical fall and found to have a R hip fracture #Right Intertrochanteric Fracture POD #4 -oxycodone PRN for pain -f/u surgery recs -PT saw patient today- will likely need RAFAEL upon discharge -will need lovenox for one month #HLD -c/w atorvastatin #Hypothyroidism patient is not taking any medications as per long term -will need to have TSH repeated in 2 weeks F/E/N not on fluids replete electrolytes when necessary regular diet Problem List - Problems (1) HLD (hyperlipidemia) Code(s): E78.5 - HYPERLIPIDEMIA, UNSPECIFIED Qualifiers: Hyperlipidemia type: other hyperlipidemia Qualified Code(s): E78.49 - Other hyperlipidemia; E78.4 - Other hyperlipidemia (2) Intertrochanteric fracture Code(s): S72.143A - DISPLACED INTERTROCHANTERIC FRACTURE OF UNSP FEMUR, INIT Qualifiers: Encounter type: initial encounter Fracture type: open Fracture alignment : nondisplaced Laterality: right Visit type - Emergency Visit Emergency Visit: Yes ED Registration Date: 08/13/18 Care time: The patient presented to the Emergency Department on the above date and was hospitalized for further evaluation of their emergent condition. - New Patient This patient is new to me today: Yes Date on this admission: 08/16/18 - Critical Care Critical Care patient: No
--- NOTE | 2018-08-16 17:54 | PN ---
Progress Note (short form) - Note Progress Note: Pt comf in bed Last Vital Signs Temp Pulse Resp BP Pulse Ox 98.3 F 72 20 141/61 93 L 08/16/18 15:15 08/16/18 15:15 08/16/18 15:15 08/16/18 15:15 08/16/18 09:05 RLE dressings cdi calves soft NT NVID hct stable a/p R hip IM nail -pain control - minimize narcotics -dvt proph (x1 mo) -oob -stable for dc to SNF -follow up as outpt about 2 weeks for suture removal
--- NOTE | 2018-08-16 18:08 | PN ---
Teaching Attending Note Name of Resident: Yamini White ATTENDING PHYSICIAN STATEMENT I saw and evaluated the patient. I reviewed the resident's note and discussed the case with the resident. I agree with the resident's findings and plan as documented. SUBJECTIVE:asymptomatic. pain is controlled. denies Cp, SOB, fever, chills, N/V/ C/D OBJECTIVE: Last Vital Signs Temp Pulse Resp BP Pulse Ox 98.3 F 72 20 141/61 93 L 08/16/18 15:15 08/16/18 15:15 08/16/18 15:15 08/16/18 15:15 08/16/18 09:05 General NAD Extremities no hip swelling, bandage intact c/d/i ASSESSMENT AND PLAN: 88yo F with PMH CAD, OA, hypothyroid, dyslipidemia, ovarian ca presented to the ER after a mechanical fall and found to have a R hip fracture 1. R intertrochanter fracture-s/p R IM gamma nail 08/13. pain controlled. further recommendations per surgery. PT eval. will likely need RAFAEL on discharge 2. dehydrated- eating well. 3. CAD- no signs of acs. as per med list not on asa. unclear if reason why. 4. hypothyroid-TSH low. T4 normal. pt is asymptomatic. as per med list and call placed to facility is not on LT4. as per daughter she thinks she was on it in the past. would repeat TSH in 2 weeks. 5. Dyslipidemia- statin 6. ovarian ca s/p oophorectomy and Rtx- outpatient follow up 7. DVT ppx- lovenox for 4 weeks 8. will need RAFAEL. SUSANA sent. awaiting placement
[2018-08-16] MEDS: ATORVASTATIN CA 10 MG TABLET (FP) PO SCH (21:56)
--- NOTE | 2018-08-16 23:51 | EKG ---
Test Reason : Blood Pressure : / mmHG Vent. Rate : 062 BPM Atrial Rate : 062 BPM P-R Int : 186 ms QRS Dur : 082 ms QT Int : 430 ms P-R-T Axes : 063 003 022 degrees QTc Int : 436 ms NORMAL SINUS RHYTHM NORMAL ECG WHEN COMPARED WITH ECG OF 24-SEP-2011 17:31, T WAVE VARIATION Confirmed by IESHA EDDY MD ([id number]) on 08/16/2018 11:50:25 PM Referred By: Confirmed By:IESHA EDDY MD
[2018-08-17 08:10] LABS: HEMATOCRIT 35.7 % (32.4-45.2); HEMOGLOBIN 11.4 GM/dL (10.7-15.3); MCHC 31.8 g/dl (32.0-36.0); MEAN CELL VOLUME 94.2 fl (80-96); MEAN PLT VOLUME 7.9 fl (7.5-11.1); PLATELET COUNT 204 K/MM3 (134-434); RBC 3.79 M/mm3 (3.60-5.2); RDW 13.3 % (11.6-15.6); WHITE BLOOD COUNT 7.4 K/mm3 (4.0-10.0)
[2018-08-17 08:21] LABS: ANION GAP 8 MMOL/L (8-16); BLOOD UREA NITROGEN 19 mg/dL (7-18); CALCIUM 8.9 mg/dL (8.5-10.1); CHLORIDE 101 mmol/L (98-107); CO2 29 mmol/L (21-32); CREATININE 0.7 mg/dL (0.55-1.3); GLUCOSE,RANDOM 84 mg/dL (74-106); POTASSIUM 4.4 mmol/L (3.5-5.1); SODIUM 138 mmol/L (136-145)
[2018-08-17] MEDS: DOCUSATE SODIUM 100 MG CAPSULE (FP) PO SCH (10:34)
[2018-08-17] MEDS: DULoxetine HCL 20 MG CAPSULE.DR (FP) PO SCH (10:34)
[2018-08-17] MEDS: GABAPENTIN 100 MG CAPSULE (FP) PO SCH ×2 (10:35→21:42)
[2018-08-17] MEDS: CHOLECALCIFEROL (VITAMIN D3) 1,000 UNIT TABLET (FP) PO SCH (10:35)
[2018-08-17] MEDS: CALCIUM 500MG/VIT-D 200 UNITS COMBO TABLET (FP) PO SCH ×2 (10:35→21:42)
[2018-08-17] MEDS ORDERED: BISACODYL 5 MG TABLET.DR (FP) PO ONE (10:46)
[2018-08-17] MEDS: ENOXAPARIN NA (PORCINE) 40 MG/0.4 ML DISP.SYRIN SQ SCH (11:35)
--- NOTE | 2018-08-17 15:27 | PN ---
Physical Exam: SUBJECTIVE: Patient seen and examined OBJECTIVE: Vital Signs Period Temp Pulse Resp BP Sys/Caldwell Pulse Ox Last 24 Hr 98.0 F-99.7 F 67-69 17-20 127-137/54-71 95-95 GENERAL: The patient is awake, alert, and fully oriented, in no acute distress. HEAD: Normal with no signs of trauma. EYES: PERRL, extraocular movements intact, sclera anicteric, conjunctiva clear. No ptosis. ENT: Ears normal, nares patent, oropharynx clear without exudates, moist mucous membranes. NECK: Trachea midline, full range of motion, supple. LUNGS: Breath sounds equal, clear to auscultation bilaterally, no wheezes, no crackles, no accessory muscle use. HEART: Regular rate and rhythm, S1, S2 without murmur, rub or gallop. ABDOMEN: Soft, nontender, nondistended, normoactive bowel sounds, no guarding, no rebound, no hepatosplenomegaly, no masses. EXTREMITIES: 2+ pulses, warm, well-perfused, no edema. NEUROLOGICAL: Cranial nerves II through XII grossly intact. Normal speech, gait not observed. PSYCH: Normal mood, normal affect. SKIN: Warm, dry, normal turgor, no rashes or lesions noted Laboratory Results - last 24 hr 08/15/18 08/17/18 08/17/18 07:30 07:10 07:10 WBC 7.4 RBC 3.79 Hgb 11.4 Hct 35.7 MCV 94.2 MCH 30.0 MCHC 31.8 L RDW 13.3 Plt Count 204 MPV 7.9 Sodium 138 Potassium 4.4 Chloride 101 Carbon Dioxide 29 Anion Gap 8 BUN 19 H Creatinine 0.7 Creat Clearance w eGFR > 60 Random Glucose 84 Calcium 8.9 Free T3 1.6 L Active Medications Generic Name Dose Route Start Last Admin Trade Name Freq PRN Reason Stop Dose Admin Atorvastatin Calcium 10 mg 08/14/18 22:00 08/16/18 21:56 Lipitor - PO 10 mg HS KAMILA Administration Calcium Carbonate/Cholecalciferol 1 tab 08/13/18 22:00 08/17/18 10:35 Os-Denny 500+D - PO 1 tab BID KAMILA Administration Cholecalciferol 1,000 unit 08/14/18 10:00 08/17/18 10:35 Vitamin D3 - PO 1,000 unit DAILY KAMILA Administration Docusate Sodium 200 mg 08/14/18 10:00 08/17/18 10:34 Colace - PO 200 mg DAILY KAMILA Administration Duloxetine HCl 20 mg 08/14/18 10:00 08/17/18 10:34 Cymbalta - PO 20 mg DAILY KAMILA Administration Enoxaparin Sodium 40 mg 08/14/18 10:00 08/17/18 11:35 Lovenox - SQ 40 mg DAILY KAMILA Administration Fentanyl 50 mcg 08/13/18 18:48 08/13/18 19:20 Sublimaze Injection - IVPUSH 50 mcg [id number] PRN Administration PAIN-PACU ORDER X 4 DOSES ONLY Gabapentin 100 mg 08/13/18 22:00 08/17/18 10:35 Neurontin - PO 100 mg BID KAMILA Administration Ondansetron HCl 4 mg 08/13/18 18:48 Zofran Injection IVPUSH Q6H PRN NAUSEA AND/OR VOMITING ASSESSMENT/PLAN: 88yo F with PMH CAD, OA, hypothyroid, dyslipidemia, ovarian ca presented to the ER after a mechanical fall and found to have a R hip fracture #Right Intertrochanteric Fracture POD #5 -oxycodone PRN for pain -f/u surgery recs -pending [facility] placement; will be going tomorrow morning -will need lovenox for one month #HLD -c/w atorvastatin #Hypothyroidism patient is not taking any medications as per halfway -will need to have TSH repeated in 2-3 weeks F/E/N not on fluids replete electrolytes when necessary regular diet Problem List - Problems (1) HLD (hyperlipidemia) Code(s): E78.5 - HYPERLIPIDEMIA, UNSPECIFIED Qualifiers: Hyperlipidemia type: other hyperlipidemia Qualified Code(s): E78.49 - Other hyperlipidemia; E78.4 - Other hyperlipidemia (2) Intertrochanteric fracture Code(s): S72.143A - DISPLACED INTERTROCHANTERIC FRACTURE OF UNSP FEMUR, INIT Qualifiers: Encounter type: initial encounter Fracture type: open Fracture alignment : nondisplaced Laterality: right Visit type - Emergency Visit Emergency Visit: Yes ED Registration Date: 08/13/18 Care time: The patient presented to the Emergency Department on the above date and was hospitalized for further evaluation of their emergent condition. - New Patient This patient is new to me today: No - Critical Care Critical Care patient: No
[2018-08-17] MEDS ORDERED: BISACODYL 10 MG SUPP.RECT PR ONE (17:16)
--- NOTE | 2018-08-17 17:20 | PN ---
Teaching Attending Note Name of Resident: Yamini White ATTENDING PHYSICIAN STATEMENT I saw and evaluated the patient. I reviewed the resident's note and discussed the case with the resident. I agree with the resident's findings and plan as documented with exceptions below. SUBJECTIVE: Patient seen and examined. Right hip pain when moves, but no other complaints. OBJECTIVE: Vital Signs Period Temp Pulse Resp BP Sys/Caldwell Pulse Ox Last 24 Hr 98.0 F-99.7 F 67-69 17-20 127-137/54-71 95-95 Intake & Output 08/14/18 08/15/18 08/16/18 08/17/18 23:59 23:59 23:59 23:59 Intake Total 2121 1100 180 120 Balance 212 1100 180 120 General: sitting in bed in no acute distress Chest: decreased effort but no rales or wheezing Abdomen;Soft, mild distension, positive bowel sounds, NT throughout Extremities: right hip dressing clean, positive DP pulses Home Medications Medication Instructions Recorded Acetaminophen 500 mg PO QID 08/13/18 Ammonium Lactate [Christa-Hydrolac] 240 gm TP ASDIR 08/13/18 Chlorhexidine Gluconate [Peridex -] 15 ml MM BID 08/13/18 Cholecalciferol (Vitamin D3) 1,000 unit PO DAILY 08/13/18 [Vitamin D3] Docusate Sodium [Colace] 200 mg PO DAILY 08/13/18 Duloxetine HCl [Cymbalta] 20 mg PO DAILY 08/13/18 Gabapentin 100 mg PO BID 08/13/18 Nitroglycerin 0.4 mg SL ASDIR 08/13/18 Simvastatin 20 mg PO DAILY 08/13/18 Active Medications Atorvastatin Calcium (Lipitor -) 10 mg PO [facility] Last Admin: 08/16/18 21:56 Dose: 10 mg Calcium Carbonate/Cholecalciferol (Os-Denny 500+D -) 1 tab PO BID [facility] Last Admin: 08/17/18 10:35 Dose: 1 tab Cholecalciferol (Vitamin D3 -) 1,000 unit PO DAILY [facility] Last Admin: 08/17/18 10:35 Dose: 1,000 unit Docusate Sodium (Colace -) 200 mg PO DAILY [facility] Last Admin: 08/17/18 10:34 Dose: 200 mg Duloxetine HCl (Cymbalta -) 20 mg PO DAILY [facility] Last Admin: 08/17/18 10:34 Dose: 20 mg Enoxaparin Sodium (Lovenox -) 40 mg SQ DAILY [facility] Last Admin: 08/17/18 11:35 Dose: 40 mg Fentanyl (Sublimaze Injection -) 50 mcg IVPUSH [id number] PRN PRN Reason: PAIN-PACU ORDER X 4 DOSES ONLY Last Admin: 08/13/18 19:20 Dose: 50 mcg Gabapentin (Neurontin -) 100 mg PO BID [facility] Last Admin: 08/17/18 10:35 Dose: 100 mg Ondansetron HCl (Zofran Injection) 4 mg IVPUSH Q6H PRN PRN Reason: NAUSEA AND/OR VOMITING Laboratory Results - last 24 hr 08/15/18 08/17/18 08/17/18 07:30 07:10 07:10 WBC 7.4 RBC 3.79 Hgb 11.4 Hct 35.7 MCV 94.2 MCH 30.0 MCHC 31.8 L RDW 13.3 Plt Count 204 MPV 7.9 Sodium 138 Potassium 4.4 Chloride 101 Carbon Dioxide 29 Anion Gap 8 BUN 19 H Creatinine 0.7 Creat Clearance w eGFR > 60 Random Glucose 84 Calcium 8.9 Free T3 1.6 L ASSESSMENT AND PLAN: 88yo F with PMH CAD, OA, hypothyroid, dyslipidemia, ovarian ca presented to the ER after a mechanical fall and found to have a R hip fracture -RIght intertrochanteric fracture s/p Right IM gamma nail 08/13 -Dehydration -Low grade fever, suspect atelectasis -Constipation -CAD -Hypothyroidism -HLD -Ovarian ca s/p oophorectomy Plan: Orthopedic input noted, doing well. Lovenox x 1 month. Await [facility] Bowel regimen. Dulcolax LA x 1 outpatient TFTs in 2 weeks Continue statin Dispo pending [facility] bed availability Plan discussed with patient, encourage Incentive spirometry at bedside.
[2018-08-17] MEDS: traMADol HCL 50 MG TABLET PO PRN (19:00)
[2018-08-17] MEDS: ATORVASTATIN CA 10 MG TABLET (FP) PO SCH (21:42)
[2018-08-18] MEDS: ACETAMINOPHEN 325 MG TABLET (FP) PO PRN ×2 (07:41→07:55)
[2018-08-18] MEDS: traMADol HCL 50 MG TABLET PO PRN (07:42)
[2018-08-18 09:34] LABS: HEMATOCRIT 36.3 % (32.4-45.2); HEMOGLOBIN 11.7 GM/dL (10.7-15.3); MCH 30.1 pg (25.7-33.7); MCHC 32.3 g/dl (32.0-36.0); MEAN CELL VOLUME 93.3 fl (80-96); MEAN PLT VOLUME 7.5 fl (7.5-11.1); PLATELET COUNT 239 K/MM3 (134-434); RBC 3.89 M/mm3 (3.60-5.2); RDW 13.2 % (11.6-15.6); WHITE BLOOD COUNT 8.8 K/mm3 (4.0-10.0)
[2018-08-18] MEDS: DOCUSATE SODIUM 100 MG CAPSULE (FP) PO SCH (09:56)
[2018-08-18] MEDS: ENOXAPARIN NA (PORCINE) 40 MG/0.4 ML DISP.SYRIN SQ SCH (09:56)
[2018-08-18] MEDS: CALCIUM 500MG/VIT-D 200 UNITS COMBO TABLET (FP) PO SCH (09:57)
[2018-08-18] MEDS: DULoxetine HCL 20 MG CAPSULE.DR (FP) PO SCH (09:57)
[2018-08-18] MEDS: GABAPENTIN 100 MG CAPSULE (FP) PO SCH (09:57)
[2018-08-18] MEDS: CHOLECALCIFEROL (VITAMIN D3) 1,000 UNIT TABLET (FP) PO SCH (09:57)
[2018-08-18 14:11] VITALS: BP 102/38; PULSE 68; TEMP 98.7
--- NOTE | 2018-08-18 14:47 | PN ---
Teaching Attending Note Name of Resident: Yamini White ATTENDING PHYSICIAN STATEMENT I saw and evaluated the patient. I reviewed the resident's note and discussed the case with the resident. I agree with the resident's findings and plan as documented with exceptions below. SUBJECTIVE: Patient seen and examined. No pain,fever, chills, cough, dyspnea, nausea, vomiting or abdominal pain currently. OBJECTIVE: Vital Signs Period Temp Pulse Resp BP Sys/Caldwell Pulse Ox Last 24 Hr 98.0 F-100.7 F 67-74 17-20 102-137/38-58 95-95 Intake & Output 08/15/18 08/16/18 08/17/18 08/18/18 23:59 23:59 23:59 23:59 Intake Total 1100 180 640 550 Output Total 0 Balance 1100 180 640 550 General: lying in bed in no acute distress Chest: decreased effort, few occasional basilar rales Abdomen:soft, obese, NT, positive bowel sounds Extremities: no edema, right hip dressing clean, positive DP pulses Home Medications Medication Instructions Recorded Acetaminophen 500 mg PO QID 08/13/18 Ammonium Lactate [Christa-Hydrolac] 240 gm TP ASDIR 08/13/18 Chlorhexidine Gluconate [Peridex -] 15 ml MM BID 08/13/18 Cholecalciferol (Vitamin D3) 1,000 unit PO DAILY 08/13/18 [Vitamin D3] Docusate Sodium [Colace] 200 mg PO DAILY 08/13/18 Duloxetine HCl [Cymbalta] 20 mg PO DAILY 08/13/18 Gabapentin 100 mg PO BID 08/13/18 Nitroglycerin 0.4 mg SL ASDIR 08/13/18 Simvastatin 20 mg PO DAILY 08/13/18 Acetaminophen [Tylenol .Regular 650 mg PO Q6H PRN tablet 08/18/18 Strength -] Enoxaparin [Lovenox -] 40 mg SQ DAILY 30 Days #30 08/18/18 disp.syrin Laboratory Results - last 24 hr 08/18/18 09:00 WBC 8.8 RBC 3.89 Hgb 11.7 Hct 36.3 MCV 93.3 MCH 30.1 MCHC 32.3 RDW 13.2 Plt Count 239 MPV 7.5 CXR - some atelectatic changes ASSESSMENT AND PLAN: 88yo F with PMH CAD, OA, hypothyroid, dyslipidemia, ovarian ca presented to the ER after a mechanical fall and found to have a R hip fracture -RIght intertrochanteric fracture s/p Right IM gamma nail 08/13 -Dehydration -Low grade fever, suspect atelectasis -Constipation -CAD -Hypothyroidism -HLD -Ovarian ca s/p oophorectomy Plan: Orthopedic input noted, doing well. Lovenox x 1 month. Await [facility] Bowel regimen. outpatient TFTs in 2 weeks Continue statin Encourage Incentive spirometry at bedside. repeat CXR, urinalysis noted. Blood cx sent but low suspicion. Encourage ambulation and incentive spirometry. D/c to SNF today. Plan discussed with daughter and updated.
--- NOTE | 2018-08-18 17:34 | DS ---
Physical Exam: SUBJECTIVE: Patient seen and examined OBJECTIVE: Vital Signs Period Temp Pulse Resp BP Sys/Caldwell Pulse Ox Last 24 Hr 98.0 F-100.7 F 67-74 17-20 102-137/38-58 95-95 PHYSICAL EXAM GENERAL: The patient is awake, alert, and fully oriented, in no acute distress. HEAD: Normal with no signs of trauma. EYES: PERRL, extraocular movements intact, sclera anicteric, conjunctiva clear. ENT: Ears normal, nares patent, oropharynx clear without exudates, moist mucous membranes. NECK: Trachea midline, full range of motion, supple. LUNGS: Breath sounds equal, clear to auscultation bilaterally, no wheezes, no crackles, no accessory muscle use. HEART: Regular rate and rhythm, S1, S2 without murmur, rub or gallop. ABDOMEN: Soft, nontender, nondistended, normoactive bowel sounds, no guarding, no rebound, no hepatosplenomegaly, no masses. EXTREMITIES: 2+ pulses, warm, well-perfused, no edema. NEUROLOGICAL: Cranial nerves II through XII grossly intact. Normal speech, gait not observed. PSYCH: Normal mood, normal affect. SKIN: Warm, dry, normal turgor, no rashes or lesions noted. LABS Laboratory Results - last 24 hr 08/18/18 09:00 WBC 8.8 RBC 3.89 Hgb 11.7 Hct 36.3 MCV 93.3 MCH 30.1 MCHC 32.3 RDW 13.2 Plt Count 239 MPV 7.5 HOSPITAL COURSE: Date of Admission:08/13/18 Date of Discharge: 08/18/18 Discharge Summary Reason For Visit: INTERTROCHANTERIC FRACTURE OF RIGHT FEMUR Current Active Problems Chronic neuropathic pain (Acute) Depression (Acute) Fracture, intertrochanteric, right femur (Acute) HLD (hyperlipidemia) (Acute) Intertrochanteric fracture (Acute) Condition: Stable - Instructions Diet, Activity, Other Instructions: You came to the emergency room after having a fall at your assisted living center and an XRAY of your hip/pelvis was done which showed a right hip fracture and you underwent surgery. Please resume all of your home medications in addition: -you will need to take the blood thinner injection Lovenox 40 mg daily, for 1 month. -if you are experiencing any pain you can take tylenol as needed. we took blood cultures which the result are still pending, if they come back positive, we will call your rehab center with the appropriate medical advice. You can have your doctor on final results in 2-3 days. Please ensure to maintain high fiber diet and laxatives as needed to ensure bowel movement once in 1-2 days. Strongly advise to continue incentive spirometry as directed every hour when awake. Referrals: -we advise that you follow up with your primary care physician and to have your TSH rechecked in 2-3 weeks. -Please follow up with Dr. Egan in 2 weeks to have your sutures removed. *if you have any falls, begin to experience any chest pain, shortness of breath , fevers, increasing pain or any new concerns please return to the emergency room immediately or call 911 Referrals: Tyrell Gallardo MD [Staff Physician] - Tito Egan MD [Staff Physician] - 2 Weeks Disposition: CUSTODIAL FACILITY - Home Medications Comprehensive Discharge Medication List: Ambulatory Orders Acetaminophen 500 mg PO QID 08/13/18 Ammonium Lactate [Christa-Hydrolac] 240 gm TP ASDIR 08/13/18 Chlorhexidine Gluconate [Peridex -] 15 ml MM BID 08/13/18 Cholecalciferol (Vitamin D3) [Vitamin D3] 1,000 unit PO DAILY 08/13/18 Docusate Sodium [Colace] 200 mg PO DAILY 08/13/18 Duloxetine HCl [Cymbalta] 20 mg PO DAILY 08/13/18 Gabapentin 100 mg PO BID 08/13/18 Nitroglycerin 0.4 mg SL ASDIR 08/13/18 Simvastatin 20 mg PO DAILY 08/13/18 Acetaminophen [Tylenol .Regular Strength -] 650 mg PO Q6H PRN tablet 08/18/18 Enoxaparin [Lovenox -] 40 mg SQ DAILY 30 Days #30 disp.syrin 08/18/18 Problem List - Problems (1) HLD (hyperlipidemia) Code(s): E78.5 - HYPERLIPIDEMIA, UNSPECIFIED Qualifiers: Hyperlipidemia type: other hyperlipidemia Qualified Code(s): E78.49 - Other hyperlipidemia; E78.4 - Other hyperlipidemia (2) Intertrochanteric fracture Code(s): S72.143A - DISPLACED INTERTROCHANTERIC FRACTURE OF UNSP FEMUR, INIT Qualifiers: Encounter type: initial encounter Fracture type: open Fracture alignment : nondisplaced Laterality: right - Discharge Referral Referred to [facility] No
== END 2018-08-18 18:52 | DRG 481 ==
LOC: JER 06:46 → JERBED 11:01 → J6S 12:05
PROVIDERS: ADMIT Internal Medicine; ATTEND Hospitalist
PROC: 0QS606Z Reposition Right Upper Femur with Intramedullary Internal Fixation Device, Open Approach (ICD-10-PCS; principal; 2018-08-13 17:00)
DX: S72.141A Displaced intertrochanteric fracture of right femur, initial encounter for closed fracture (principal); C56.9 Malignant neoplasm of unspecified ovary; J98.11 Atelectasis; I25.10 Atherosclerotic heart disease of native coronary artery without angina pectoris; E03.9 Hypothyroidism, unspecified; E86.0 Dehydration; I25.2 Old myocardial infarction; M06.9 Rheumatoid arthritis, unspecified; M81.0 Age-related osteoporosis without current pathological fracture; E78.5 Hyperlipidemia, unspecified; F32.9 Major depressive disorder, single episode, unspecified; F41.9 Anxiety disorder, unspecified; I73.9 Peripheral vascular disease, unspecified; G31.84 Mild cognitive impairment of uncertain or unknown etiology; W05.0XXA Fall from non-moving wheelchair, initial encounter; Y93.89 Activity, other specified; Y92.031 Bathroom in apartment as the place of occurrence of the external cause; Y99.8 Other external cause status; G62.9 Polyneuropathy, unspecified; Z85.43 Personal history of malignant neoplasm of ovary
CPT/HCPCS: 36415; 70450-TC; 71045-TC-FY; 73523-TC-FY; 76000-TC-FY; 80048; 80053; 83735; 84100; 84439; 84443; 84481; 85025; 85027; 85610; 85730; 86850; 86900; 86901; 87040; 93005; 93010; 94010; 94760; 97116-GP; 97162-GP; 99285-25; J0131; J7030

== ENCOUNTER 2020-04-02 14:38 | Emergency (ER) | payer OTHER ==
[2020-04-02 15:02] VITALS: TEMP 98.2; BMI 40.1
[2020-04-02] MEDS ORDERED: ACETAMINOPHEN 325 MG TABLET (FP) PO ONE (15:04)
--- NOTE | 2020-04-02 15:07 | PDOC ---
Attending Attestation - Resident Resident Name: Kermit Flores - ED Attending Attestation I have performed the following: I have examined & evaluated the patient, The case was reviewed & discussed with the resident, I agree w/resident's findings & plan - HPI HPI: 04/02/20 15:05 89yo F with PMH CAD, OA, hypothyroid, dyslipidemia, ovarian ca, prior hip fx presented to the ER with right wrist injury/pain, swelling and bruising from NH - Physicial Exam PE: 04/02/20 15:06 physical exam General: NAD, well appearing HEENT: NCAT, EOMI, PERRL. airway patent Resp: no distress, speaking full sentences. Abdomen: soft, no tenderness, nondistended Vascular: 2+ DP pulses symmetric and equal. MSK: shoulder abduction/adduction/flexion/extension and prox strength 5/5 actively against resistance. 5/5 shoulder shrug strength. deltoid sensation intact; sensation grossly intact in median/radial/ulnar distribution. distal veneer drier feeder strength 5/5. 2+ radialis pulses bilaterally and symmetric. FDS And FDP intact in affected finger. +right distal radius palp swelling, tenderness and significant ecchymosis. ROM limited due to pain/swelling, in extension and flexion of the wrist. right forearm ecchymosis, nontender elbow FROM. Neuro: alert, oriented x2 only Skin: color normal color, warm and well perfused. Cap refill <2 sec. 04/02/20 16:15 - Medical Decision Making 04/02/20 15:06 Vital Signs Temp Pulse Resp BP Pulse Ox 98.2 F 65 20 120/61 97 04/02/20 14:56 04/02/20 14:56 04/02/20 14:56 04/02/20 14:56 04/02/20 14:56 VS reviewed, wnl pain control, tylenol Xray right hand/wrist and forearm- right distal radius fx, ulnar styloid fx, impacted at the distal radius.. Colles fx. no dislocation NVI pain control reduce wih assistance of gravity sugar tong splint with sling ortho cs, Dr Tiki Berry anticipate discharge after reduction and post red XR. 04/02/20 16:17 04/05/20 13:40 Discharge - Discharge Information Problems reviewed: Yes Clinical Impression/Diagnosis: Colles' fracture Distal radius fracture, right Qualifiers: Encounter type: initial encounter Fracture type: closed Fracture morphology: Colles' Qualified Code(s): S52.531A - Colles' fracture of right radius, initial encounter for closed fracture Condition: Stable Disposition: HOME - Follow up/Referral Referrals: Tyrell Gallardo MD [Primary Care Provider] - Axel Berry MD [Staff Physician] - - Patient Discharge Instructions Patient Printed Discharge Instructions: DI for Wrist Fracture Additional Instructions: YOU HAVE A FRACTURED WRIST YOU MUST FOLLOW UP WITH DR AXEL BERRY OR DR KIAN MANUEL WITHIN THE NEXT WEEK FOR FOLLOW UP VISIT WITH THE ORTHOPEDIST CONTACT THE ORTHOPEDIST FOR ANY CONCERNS - Post Discharge Activity
[2020-04-02] MEDS ORDERED: LIDOCAINE HCL 1%, 10 MG/ML (50 mL VIAL) SQ ONE (16:40)
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
--- NOTE | 2020-04-02 18:57 | PDOC ---
*Physical Exam - Vital Signs Last Vital Signs Temp Pulse Resp BP Pulse Ox 98.2 F 68 16 122/58 L 95 04/02/20 14:56 04/02/20 18:48 04/02/20 18:48 04/02/20 18:48 04/02/20 18:48 ED Treatment Course - Medications Given in the ED: ED Medications Discontinued Medications Generic Name Dose Route Start Last Admin Trade Name Chayo PRN Reason Stop Dose Admin Acetaminophen 975 mg 04/02/20 15:04 04/02/20 15:17 Tylenol - PO 04/02/20 15:05 975 mg ONCE ONE Administration Lidocaine HCl 10 ml 04/02/20 16:40 04/02/20 16:51 Xylocaine 1% SQ 04/02/20 16:41 10 ml ONCE ONE Administration Medical Decision Making - Medical Decision Making 04/02/20 18:[address] Axel Berry and the plan is for office follow up within the next 7 days Discharge - Discharge Information Problems reviewed: Yes Clinical Impression/Diagnosis: Distal radius fracture, right Qualifiers: Encounter type: initial encounter Fracture type: closed Fracture morphology: Colles' Qualified Code(s): S52.531A - Colles' fracture of right radius, initial encounter for closed fracture Condition: Stable Disposition: HOME - Admission No - Follow up/Referral Referrals: Tyrell Gallardo MD [Primary Care Provider] - Axel Berry MD [Staff Physician] - - Patient Discharge Instructions Patient Printed Discharge Instructions: DI for Wrist Fracture Additional Instructions: YOU HAVE A FRACTURED WRIST YOU MUST FOLLOW UP WITH DR AXEL BERRY OR DR KIAN MANUEL WITHIN THE NEXT WEEK FOR FOLLOW UP VISIT WITH THE ORTHOPEDIST CONTACT THE ORTHOPEDIST FOR ANY CONCERNS [phone] - Post Discharge Activity
[2020-04-02 20:47] VITALS: BP 123/60; PULSE 72
== END 2020-04-02 20:45 | disposition home or self-care (01) ==
LOC: JER 14:38
PROC: 3E023GC Introduction of Other Therapeutic Substance into Muscle, Percutaneous Approach (ICD-10-PCS; principal; 2020-04-02)
PROC: 0PSHXZZ Reposition Right Radius, External Approach (ICD-10-PCS; principal; 2020-04-02)
DX: S52.531A Colles' fracture of right radius, initial encounter for closed fracture (principal); T76.11XA Adult physical abuse, suspected, initial encounter; Y04.8XXA Assault by other bodily force, initial encounter
CPT/HCPCS: 73090-TC-RT-FY; 73110-TC-RT-FY; 73130-TC-RT-FY; 99284-25